=== PATIENT | female | born 1990 | race Caucasian/White ===

== ENCOUNTER 2023-12-08 21:21 | Inpatient (IN) | payer MEDICAID, SELFPAY ==
[2023-12-08 21:23] VITALS: BMI 28.7
[2023-12-08 21:27] VITALS: BP 126/87; PULSE 127
[2023-12-08 21:33] VITALS: TEMP 36.8
[2023-12-08 21:41] LABS: Basophils Absolute Auto 0.02 K/uL (0.00-0.30); Basophils Percent Auto 0.2 % (0.0-3.0); Eosinophils Absolute Auto 0.22 K/uL (0.00-0.50); Eosinophils Percent Auto 2.7 % (0.0-7.0); Hematocrit 34.1 % (33.0-51.0); Hemoglobin* 11.2 gm/dL (12.0-16.0); Immature Granulocytes Abs Auto 0.02 K/uL (0.00-0.30); Immature Granulocytes Pct Auto 0.2 %; Lymphocytes Percent Auto 25.7 % (20-44); Mean Corpuscular HGB Conc 33 gm/dL (32-36); Mean Corpuscular Hemoglobin 28 pg (26-34); Mean Corpuscular Volume 86 fL (80-100); Monocytes Percent Auto 8.1 % (0.0-11.0); Neutrophils Absolute Auto 5.16 K/uL (1.7-7.0); Neutrophils Percent Auto 63.1 % (42.0-72.0); Platelet Count* 161 K/uL (140-440); RDW Coefficient of Variation % 14.2 % (11.5-15.5); Red Blood Count 3.96 m/uL (4.00-5.20); White Blood Count* 8.18 K/uL (4.50-11.00)
--- NOTE | 2023-12-08 22:04 | P.OBHP_ITS ---
OB - H&P: HPI Labor/Induction History of Present Illness Date Seen: 12/08/23 Chief Complaint: The patient is a 33 year old 5 para 2 at 38.3 weeks gestation by 1st trimester ultrasound, who presents with PEMA. Chief complaint: Maternity : 5 Para: 2 Narrative: Hetal Sims is a 33 year old female who has had an essentially uncomplicated to date. She has had contractions since 2 am and have gotten worse over the last few hours. No gush of fluid. Feeling good movement. No bleeding. Otherwise well. History of Present Dating criteria: based on 1st trimester US only care: good care Ultrasounds: normal 1st trimester US and normal mid trimester US Medical complications: none Labs Blood type: A (-) negative Rubella: immune RPR/VDLR: nonreactive GBS status: negative HBsAG: negative Review of Systems Status of ROS: Reports: 10 or more systems reviewed and unremarkable except as noted in History and below Meds Home Medications and Allergies Home Medications Medication Instructions Recorded Confirmed Type cetirizine 10 mg tablet (24Hour 10 mg PO DAILY PRN 12/08/23 12/08/23 History Allergy) vit no.95-ferrous 1 tab PO DAILY 12/08/23 12/08/23 History fumarate 28 mg-folic acid 800 mcg tablet () Allergies Allergy/AdvReac Type Severity Reaction Status Date / Time Sulfa (Sulfonamide Allergy Intermediate Verified 12/08/23 22:08 Antibiotics) epidural AdvReac Intermediate Uncoded 12/08/23 22:08 OB - H&P: Exam Physical Exam: Vital signs: Temp Pulse BP 98.2 F 127 H 126/87 12/08/23 21:33 12/08/23 21:27 12/08/23 21:27 Constitutional: Constitutional: no acute distress Routine Respiratory Exam: Respiratory: Present CTA bilaterally Routine Cardiovascular Exam: Cardiovascular: RRR, S1, S2 and tachycardia (Mild) Detailed Labor and Delivery Exam: Patient Gravid: Yes Comments: 7/100/0 per RN Fetus (Single): Amniotic Membrane Status: intact Heart Rate Baseline: 150 Monitor Accelerations: Present Monitor Decelerations: None [employer] Variability: Moderate (6-25) OB - Problem Based A/P Additional Plan (1) Term : Status: Acute Plan Wants to wait on interventions at this time. Strip is category 1. Will manage expectantly. Anticipate soon. Delivery/Labor/Induction Plan Plan: expectant management
[2023-12-08 22:16] LABS: Slide Review Reflex No
[2023-12-09] VITALS (52 sets, daily range): BP systolic 98–139; BP diastolic 50–98; PULSE 75–125; RESP 16–18; TEMP 36.4–37; O2SAT 97
--- NOTE | 2023-12-09 03:00 | PM.OBPNL ---
Subjective Time Seen by Provider: 03:00 Date Seen: 12/09/23 Narrative: Feeling a little more uncomfortable but not really feeling pressure yet. Objective Vital Signs: Last Vital Signs Temp 98.5 F 12/09/23 02:13 Pulse 99 12/09/23 02:13 Resp 18 12/09/23 02:13 BP 98/57 L 12/09/23 02:13 Pelvic Exam Dilation (cm): 6 Effacement (%): 80 Station: 0 Contractions Monitor mode: External Contraction Frequency: q3 Contraction pattern: Regular Contraction intensity: Moderate Assessment Assessment: active labor Station: 0 Amniotic Membrane Status: AROM Status: Category l Heart Rate Baseline: 150 Monitor Accelerations: Present Monitor Decelerations: None Plan Plan: Cervix essentially unchanged. Since she is a multip at 6 cm for the last 6 hours, she is felt to have arrest of dilation. Discussed options. Could continue to monitor but would not recommend discharge due to advanced dilation. Elected to AROM after discussion of risks and benefits. Clear fluid returned. Anticipate soon. Will manage expectantly. Mom does not want pain control at this time.
[2023-12-09] MEDS: LACTATED RINGERS 1000 ML 1,000 ML 999 ML IV (05:44)
[2023-12-09] MEDS: ROPIVACAINE 0.2% 100 ml 100 ML 12 MG EPIDURAL (06:22)
--- NOTE | 2023-12-09 06:25 | PM.ANBPRC ---
PFSH PFSH Social History What is your current living situation?: I presently have a place to live Problems where you live: no known problems In the past 12 months, utilities in danger of being shut off: no In past 12 months, lack of transportation kept you from medical appts, meetings, work, or getting things needed for daily living: no In the past 12 mos, have been you worried that your food would run out before you had money to buy more?: never true In the past 12 mos, the food you bought just didn't last and you didn't have money to buy more?: never true Smoking Status: Never smoker How often does anyone, including family, friends and others, physically hurt you: never How often does anyone, including family, friends and others, insult or talk down to you: never How often does anyone, including family, friends and others, threaten you with harm: never How often does anyone, including family, friends and others, scream or curse at you: never Meds Home Medications and Allergies Home Medications Medication Instructions Recorded Confirmed Type cetirizine 10 mg tablet (24Hour 10 mg PO DAILY PRN 12/08/23 12/08/23 History Allergy) vit no.95-ferrous 1 tab PO DAILY 12/08/23 12/08/23 History fumarate 28 mg-folic acid 800 mcg tablet () Allergies Allergy/AdvReac Type Severity Reaction Status Date / Time Sulfa (Sulfonamide Allergy Intermediate Verified 12/08/23 22:08 Antibiotics) epidural AdvReac Intermediate Uncoded 12/08/23 22:08 Results Labs Labs: Laboratory Results - last 24 hr 12/08/23 21:34 WBC 8.18 RBC 3.96 L Hgb 11.2 L Hct 34.1 MCV 86 MCH 28 MCHC 33 RDW Coeff of Brandie 14.2 Plt Count 161 Neut % (Auto) 63.1 Lymph % (Auto) 25.7 [place] % (Auto) 8.1 Eos % (Auto) 2.7 Baso % (Auto) 0.2 Neut # (Auto) 5.16 Lymph # (Auto) 2.10 [place] # (Auto) 0.70 Eos # (Auto) 0.22 Baso # (Auto) 0.02 Abs Immat Gran (auto) 0.02 Imm/Tot Granulo (auto) 0.2 Blood Type A Negative Antibody Screen NEGATIVE Vital Signs Vital Signs: Last Vital Signs Temp 98.6 F 12/09/23 05:06 Pulse 125 H 12/09/23 06:23 Resp 18 12/09/23 05:06 BP 105/50 L 12/09/23 06:23 Weight: 85.774 kg Height: 172.72 cm Anesthesia Procedures Epidural Insertion Patient Location: OB Start Time: 05:40 Stop Time: 06:30 Start Date: 12/09/23 Stop Date: 12/09/23 Reason for Block: procedure for pain Patient Position: sitting Performed By: Radha Guerrero Preanesthetic Checklist: IV checked, risks and benefits discussed, monitors and equipment checked, timeout performed and anesthesia consent Prep: chlorhexidine gluconate Monitoring: blood pressure monitoring, continuous pulse oximetry and heart rate Approach: midline Vertebral Space: lumbar (1-5) Epidural Technique: KARINA saline Needle Type: Tuohy needle Injection Technique: continuous catheter Needle gauge: 17 Needle Length (cm): 10 cm Needle Insertion Depth (cm): 7 Catheter Gauge: 19 Catheter Type: multi-orifice Catheter at skin depth (cm): 13 Test Dose Result: negative and lidocaine 1.5% with epinephrine 1 to 200,000 Events: other (Patient reported feeling nausea, low blood pressure and stars in her vision with her epidural in 2019 (chart review stated 10mL bolus no drug indicated). After negative test dose with this placement, gave 2 cc 0.25% Bupivacaine in divided doses; Ropivacaine gtt initiated. Good pain relief per pt.)
[2023-12-09] MEDS: OXYTOCIN 30 unit/500 ML in NS 30 UNIT/500 ML BAG IVPB (07:40)
--- NOTE | 2023-12-09 07:55 | PM.OBPNL ---
Subjective Time Seen by Provider: 07:00 Date Seen: 12/09/23 Narrative: She was getting quite a bit more uncomfortable. Nitrous didn't help. She decided to do an epidural. She is now much more comfortable. 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 Feeling comfortable. Plan Plan: Discussed starting low dose pitocin to help increase strength of contractions and hopefully get her to complete. Risks and benefits discussed. She is agreeable. Will start 1 unit of pitocin and monitor closely. Still anticipate soon.
[2023-12-09] MEDS: PHENYLEPHRINE 100 MCG/ML SYRINGE IVP (08:21)
[2023-12-09] MEDS: LACTATED RINGERS 1000 ML 1,000 ML 125 ML IV (08:40)
--- NOTE | 2023-12-09 09:33 | W.PM.VAGDEL1 ---
Procedure Procedure Done: Global Intrapartal Events: Labor Augmentation Delivery augmentation: rupture of membranes and pitocin Delivery monitor: external FHT Route of delivery: Laceration description: None Estimated blood loss (mL): 10 Anesthesia type: Epidural Disposition: floor Narrative: 1st stage: mom at 38 weeks, 4 days presented on 12/08 with PEMA at home. Contractions worsened with slow cervical change. AROM performed with clear fluid at 0258 on 12/09. Pitocin started at 0800 for prolonged 1st stage of labor. Epidural anesthesia. Strip category 1 through 1st stage. Compete at 0901. 2nd stage: Baby girl born via OA position at 0904 over intact perineum. Minimal bleeding. Pitocin started after delivery. 3rd stage: Placenta delivered spontaneously at 0916. EBL 10 ml Infant Gender: Female presentation: vertex Placental Delivery Description: Spontaneous Cord Description: 3 Vessels
[2023-12-09] MEDS: ACETAMINOPHEN 500 MG TABLET 1000 MG PO ×2 (12:07→18:27)
[2023-12-09] MEDS: IBUPROFEN 600 MG TABLET PO ×2 (15:23→21:45)
--- NOTE | 2023-12-09 15:32 | PM.ANPOST ---
Post Anesthesia Note Post Anesthesia Note Patient seen: Inpatient Respiratory Status: adequate Cardiovascular Status: adequate Mental Status: baseline Pain: adequate Temp: baseline Anesthetic awareness: N/A Complications: none Follow care: none
[2023-12-10] MEDS: ACETAMINOPHEN 500 MG TABLET 1000 MG PO (00:37)
[2023-12-10] MEDS: IBUPROFEN 600 MG TABLET PO (03:46)
[2023-12-10 03:55] VITALS: BP 116/75; PULSE 75; RESP 16; TEMP 36.6; O2SAT 96
[2023-12-10 06:33] LABS: Hemoglobin* 10.1 gm/dL (12.0-16.0)
--- NOTE | 2023-12-10 07:38 | P.DS_ITS ---
DS: Providers Provider Time Seen by Provider: 07:38 Date Seen: 12/10/23 Date of admission: 12/08/23 21:21 Primary care physician: Carlito Carter MD Admitting Clinician: Carlito Carter MD Attending Physician on discharge: Carlito Carter MD Date of Discharge: 12/10/23 DS: Diagnosis Discharge Diagnosis (1) (normal spontaneous vaginal delivery): Status: Acute (2) care following vaginal delivery: Status: Acute Exam Const: Vital Signs, click to edit/add: Vital Signs - 24 hr 12/09/23 07:49 12/09/23 07:57 12/09/23 08:03 Temperature 98.1 F Pulse Rate 108 H 108 H Pulse Rate [Pulse Oximeter] Respiratory Rate 16 Blood Pressure 110/52 L 109/56 L Blood Pressure [Ri ght Arm] [facility] 08:09 12/09/23 08:18 12/09/23 08:24 Temperature Pulse Rate 115 H 96 93 Pulse Rate [Pulse Oximeter] Respiratory Rate Blood Pressure 104/57 L 98/53 L 101/64 Blood Pressure [Ri ght Arm] Pulse Oximetry [facility] 12/09/23 08:34 12/09/23 08:36 12/09/23 08:38 Temperature Pulse Rate 83 102 H 88 Pulse Rate [Pulse Oximeter] Respiratory Rate Blood Pressure 123/67 137/91 H 117/57 L Blood Pressure [Ri ght Arm] Pulse Oximetry [facility] 12/09/23 08:47 12/09/23 08:52 12/09/23 08:57 Temperature Pulse Rate 91 96 104 H Pulse Rate [Pulse Oximeter] Respiratory Rate Blood Pressure 127/77 132/76 137/70 Blood Pressure [Ri ght Arm] Pulse Oximetry [facility] 12/09/23 09:17 12/09/23 09:17 12/09/23 09:32 Temperature 98.4 F Pulse Rate 96 101 H Pulse Rate [Pulse Oximeter] Respiratory Rate 16 Blood Pressure 123/58 L 118/56 L Blood Pressure [Ri ght Arm] Pulse Oximetry [facility] 12/09/23 09:32 12/09/23 09:47 12/09/23 09:47 Temperature Pulse Rate 98 Pulse Rate [Pulse Oximeter] Respiratory Rate 16 16 Blood Pressure 119/69 Blood Pressure [Ri ght Arm] Pulse Oximetry Oxygen Delivery Me thod 12/09/23 10:02 12/09/23 10:03 12/09/23 10:18 Temperature Pulse Rate 88 Pulse Rate [Pulse Oximeter] Respiratory Rate 16 Blood Pressure 132/82 123/79 Blood Pressure [Ri ght Arm] Pulse Oximetry Oxygen Delivery Me thod 12/09/23 10:18 12/09/23 10:18 12/09/23 10:32 Temperature Pulse Rate 94 Pulse Rate [Pulse Oximeter] Respiratory Rate 16 Blood Pressure 124/76 Blood Pressure [Ri ght Arm] Pulse Oximetry Oxygen Delivery Me thod 12/09/23 10:32 12/09/23 10:32 12/09/23 10:47 Temperature Pulse Rate 88 Pulse Rate [Pulse Oximeter] Respiratory Rate 16 Blood Pressure 117/72 Blood Pressure [Ri ght Arm] Pulse Oximetry Oxygen Delivery Me thod 12/09/23 10:47 12/09/23 10:47 12/09/23 11:02 Temperature Pulse Rate 95 Pulse Rate [Pulse Oximeter] Respiratory Rate 16 Blood Pressure 126/75 Blood Pressure [Ri ght Arm] Pulse Oximetry Oxygen Delivery Me thod 12/09/23 11:02 12/09/23 11:02 12/09/23 15:30 Temperature 98.0 F 98.0 F Pulse Rate 107 H Pulse Rate [Pulse Oximeter] 83 Respiratory Rate 16 16 Blood Pressure Blood Pressure [Ri ght Arm] 137/81 Pulse Oximetry 97 Oxygen Delivery Me thod Room Air 12/09/23 19:49 12/09/23 22:50 12/10/23 03:55 Temperature 97.8 F 97.5 F L 97.8 F Pulse Rate Pulse Rate [Pulse Oximeter] 75 99 75 Respiratory Rate 16 16 16 Blood Pressure Blood Pressure [Ri ght Arm] 139/81 116/81 116/75 Pulse Oximetry 97 96 Oxygen Delivery Me thod Room Air Room Air Room Air Common normals: no apparent distress and healthy appearing General appearance: cooperative and comfortable : Uterus: U/1 and firm OB - DS: Summary Hospital Course Hospital Course: The patient is a 33 year old G 5 P 3 at 38 4/7 weeks gestation that was admitted to the Center on 12/08/23 for labor. She had an uncomplicated vaginal delivery. She delivered a viable female infant. She is . the patient has done well. Pt tolerating orals, ambulating, voiding and doing well. No concerns. Lochia scant per nursing. Nursing well per pt. Peripartum Data delivery method: Vaginal Laceration description: None complications: none [place] Gender: Female Discharge Plan: Home Status at Discharge Functional status at discharge: independent ambulation Time Spent with Patient Time attestation: Total time spent providing and/or coordinating discharge services: Discharge Plan Discharge Disposition: Home, Self-Care Date of Admission: 12/08/23 21:21 Primary Care Provider: Carlito Carter Condition: Stable Anticipated Discharge Date/Time: 12/10/23 09:10 Discharge Medications: New acetaminophen 500 mg Tablet 1,000 mg PO Q6H PRNQty: 30 0RF docusate sodium 100 mg Capsule 100 mg PO DAILY Qty: 30 0RF ibuprofen 600 mg Tablet 600 mg PO Q6H PRNQty: 30 0RF Continued cetirizine [24Hour Allergy] 10 mg tablet 10 mg PO DAILY PRN PNV cmb#95-ferrous fumarate-FA [] 28 mg iron- 800 mcg tablet 1 tab PO DAILY Discharge Orders: Discharge Order (Routine); Ordered 12/10/23 Ordered By: Beth Short Patient Education: Your Baby (DC), OB Vaginal/Breast Feeding Activity Level: Activity as Tolerated Activity Detail: Pelvic rest x 6 weeks Discharge Diet: Regular Follow Up Appointments: Carlito Carter MD [Primary Care Provider] - (Make 6week visit with Dr Carter) Forms: [employer] Info Instructions
[2023-12-10 09:30] VITALS: BP 113/71; PULSE 74; RESP 16; TEMP 36.7; O2SAT 97
== END 2023-12-10 10:40 | disposition home or self-care (01) | DRG 807 ==
LOC: OB OUT 12-09 11:34
PROVIDERS: Admitting Provider Surgery; PCP Surgery; Visit Provider Surgery
DX: O63.0 Prolonged first stage (of labor) (principal); Z37.0 Single live birth; Z3A.38 38 weeks gestation of pregnancy
CPT/HCPCS: 01967; 36415; 85018; 85025; 85461; 86592; 86850; 86900; 86901; G0463; A9270; J0665; J2371; J2791; J2795; J7120